=== PATIENT | female | born 1965 | race African-American/Black ===

== ENCOUNTER 2017-04-27 03:51 | Emergency (ER) | payer OTHER ==
[2017-04-27 03:59] VITALS: PULSE 104
[2017-04-27] MEDS ORDERED: ACETAMINOPHEN TAB 500 MG TAB PO STA (04:16)
--- NOTE | 2017-04-27 04:19 | ED ---
URI HPI - General Chief Complaint: Upper Respiratory Infection Stated Complaint: cough Time Seen by Provider: 04/27/17 04:00 Source: patient, RN notes reviewed Mode of arrival: ambulatory Limitations: no limitations - History of Present Illness Initial Comments: This is a 52-year-old female who states she had the onset yesterday of a cough sore throat headache some chest tightness. She states the cough is somewhat productive. She denies any nausea vomiting she does have a generalized headache also. No neck pain no back pain. MD Complaint: fever, cough, nasal congestion - Related Data Previous Rx's Medication Instructions Recorded Ibuprofen 800 mg PO Q6HR PRN #20 tablet 04/27/17 Oseltamivir [Tamiflu] 75 mg PO Q12HR #14 cap 04/27/17 Allergies Allergy/AdvReac Type Severity Reaction Status Date / Time No Known Allergies Allergy Verified 04/27/17 03:59 Review of Systems ROS Statement: Those systems with pertinent positive or pertinent negative responses have been documented in the HPI. ROS Other: All systems not noted in ROS Statement are negative. Past Medical History Past Medical History: No Reported History History of Any Multi-Drug Resistant Organisms: None Reported Past Surgical History: No Surgical Hx Reported Past Psychological History: No Psychological Hx Reported Smoking Status: Current some day smoker Past Alcohol Use History: Occasional Past Drug Use History: None Reported General Exam - General Exam Comments Initial Comments: This is a well-developed well-nourished awake alert oriented 3 female Limitations: no limitations General appearance: alert, in no apparent distress Head exam: Present: atraumatic, normocephalic, normal inspection Eye exam: Present: normal appearance, PERRL, EOMI. Absent: scleral icterus, conjunctival injection, periorbital swelling ENT exam: Present: other (Boggy nasal mucosa. Very minimal posterior pharyngeal hyperemia no exudate seen. TMs are dull bilaterally.) Neck exam: Present: normal inspection, full ROM. Absent: tenderness, meningismus Respiratory exam: Present: normal lung sounds bilaterally. Absent: respiratory distress, wheezes, rales, rhonchi, stridor Cardiovascular Exam: Present: normal rhythm, tachycardia, normal heart sounds. Absent: systolic murmur, diastolic murmur, rubs, gallop, clicks GI/Abdominal exam: Present: soft, normal bowel sounds. Absent: distended, tenderness, guarding, rebound, rigid Extremities exam: Present: normal inspection, full ROM, normal capillary refill. Absent: tenderness, pedal edema, joint swelling, calf tenderness Back exam: Present: normal inspection Neurological exam: Present: alert, oriented X3, CN II-XII intact Psychiatric exam: Present: normal affect, normal mood Skin exam: Present: warm, dry, intact, normal color. Absent: rash Course Vital Signs 04/27/17 03:54 Temperature 102.4 F H Pulse Rate 104 H Respiratory 18 Rate Blood Pressure 139/78 O2 Sat by Pulse 97 Oximetry Medical Decision Making - Medical Decision Making I did discuss findings with the patient family members patient does have influenza type A. She'll be discharged home on appropriate medication - Lab Data Lab Results 04/27/17 Range/Units 04:09 Influenza Type A RNA Detected H (Not Detectd) Influenza Type B (PCR) Not Detected (Not Detectd) - Radiology Data Radiology results: report reviewed (I did review the imaging and reports no acute findings.), image reviewed Disposition Clinical Impression: Influenza, Febrile illness, acute Disposition: HOME SELF-CARE Condition: Good Instructions: Influenza (ED), Fever in Adults (ED) Prescriptions: Ibuprofen 800 mg PO Q6HR PRN #20 tablet PRN Reason: Pain Oseltamivir [Tamiflu] 75 mg PO Q12HR #14 cap Referrals: Ricky Taylor MD [Primary Care Provider] - 1-2 days
[2017-04-27] MEDS ORDERED: OSELTAMIVIR 75 MG CAP PO STA (04:52)
--- NOTE | 2017-04-27 05:00 | XR ---
EXAM: XR Chest, 2 Views CLINICAL HISTORY: Reason: cough TECHNIQUE: Frontal and lateral views of the chest. COMPARISON: No relevant prior studies available. FINDINGS: Lungs: Unremarkable. No consolidation. Pleural space: Unremarkable. No pneumothorax. Heart: Unremarkable. No cardiomegaly. Mediastinum: Unremarkable. Bones/joints: Unremarkable. IMPRESSION: Normal chest x-rays.
[2017-04-27 05:14] VITALS: BP 136/77; RESP 19; TEMP 102.5
[2017-04-27] MEDS ORDERED: IBUPROFEN 800 MG TAB PO STA (05:14)
== END 2017-04-27 05:17 | disposition home or self-care (01) ==
LOC: EC 03:51
DX: J09.X2 Influenza due to identified novel influenza A virus with other respiratory manifestations (principal); F17.200 Nicotine dependence, unspecified, uncomplicated
CPT/HCPCS: 71046; 87502; 99283

== ENCOUNTER → 2018-12-19 | Outpatient (CLI) | payer OTHER ==
--- NOTE | 2018-12-23 09:26 | MM ---
Reason for exam: screening (asymptomatic). Last mammogram was performed 1 year and 9 months ago. History: Patient is postmenopausal. Physical Findings: A clinical breast exam by your physician is recommended on an annual basis and results should be correlated with mammographic findings. MG Screening Mammo w CAD Bilateral CC and MLO view(s) were taken. Prior study comparison: March 27, 2017, bilateral MG screening mammo w CAD. There are scattered fibroglandular densities. There is chronic nodularity in the right breast. No significant changes when compared with prior studies. ASSESSMENT: Negative, BI-RAD 1 RECOMMENDATION: Routine screening mammogram of both breasts in 1 year.
== END | disposition home or self-care (01) ==
LOC: RADMAMWWP 13:38
PROVIDERS: ATTEND Family Medicine
DX: Z12.31 Encounter for screening mammogram for malignant neoplasm of breast (principal)
CPT/HCPCS: 77067

== ENCOUNTER → 2021-03-17 | Outpatient (CLI) | payer OTHER ==
--- NOTE | 2021-03-17 11:28 | MR ---
EXAMINATION TYPE: MR knee RT wo con DATE OF EXAM: 03/17/2021 COMPARISON: X-ray 01/26/2021 HISTORY: Right knee pain TECHNIQUE: Multiplanar, multisequence imaging of the right knee is performed without IV contrast. FINDINGS: There is bone marrow edema or contusion involving the medial tibial plateau likely related to reactiv e marrow edema. Significant edema surrounding the medial collateral ligament which appears intact fin dings suggestive of sprain. There is a pseudoextrusion of the medial meniscus with the posterior hor n medial meniscal tear. There is grade III chondromalacia focally within the medial femoral articular cartilage. Motion artifact limits assessment of the ACL which is believed to be intact. PCL and lateral collater al ligament also to be intact. Lateral meniscus has a normal appearance. The patellofemoral joint demonstrates a moderate amount of fluid. Patellar and quadriceps tendons are intact but are limited by motion. There is a small amount of increased signal near the insertion of the quadriceps tendon upon the patella which could represent a mild tendinosis correlate clinically g iven limitations of the exam.. There is fibrillation and chondromalacia of the patellar cartilage. Po pliteal fossa demonstrates no evidence of cyst. IMPRESSION: 1. Marrow edema or contusion involving the medial tibial plateau with the grade 3 posterior horn and body medial meniscal tear. Edema is seen surrounding the MCL without evidence of disruption findings are suggestive of sprain. 2. Moderate amount of fluid in the suprapatellar bursa. Motion artifact limits the exam there is no e vidence of quadriceps tendon tear. There may be small amount of intrasubstance signal near the insert ion of the quadriceps suggestive of tendinitis.
== END | disposition home or self-care (01) ==
LOC: RADMRIMAIN 08:40
PROVIDERS: ATTEND Orthopaedic Surgery
DX: S83.241A Other tear of medial meniscus, current injury, right knee, initial encounter (principal); X58.XXXA Exposure to other specified factors, initial encounter

== ENCOUNTER 2022-02-12 10:18 | Emergency (ER) | payer OTHER ==
[2022-02-12 10:39] VITALS: TEMP 98.3
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
[2022-02-12] MEDS ORDERED: ACET/COD 300 MG/30 MG STARTER PACK 6 TAB BTL PO STA (11:23)
[2022-02-12] MEDS ORDERED: oxyCODONE-APAP 10-325MG 1 EACH TAB PO STA (11:23)
[2022-02-12 11:32] VITALS: BP 143/106; PULSE 76; RESP 18
--- NOTE | 2022-02-12 13:30 | XR ---
EXAMINATION TYPE: XR finger LT DATE OF EXAM: 02/12/2022 COMPARISON: None HISTORY: Fourth digit dislocation TECHNIQUE: Three-view left ring finger FINDINGS: There is an anterior dislocation of the middle phalanx of the proximal phalanx fourth digit . Soft tissues appear normal. No acute fractures identified. IMPRESSION: 1. Dislocation middle phalanx on proximal phalanx left ring finger.
== END 2022-02-12 11:34 | disposition home or self-care (01) ==
LOC: EC 10:18
DX: S63.259A Unspecified dislocation of unspecified finger, initial encounter (principal); F17.200 Nicotine dependence, unspecified, uncomplicated; W23.1XXA Caught, crushed, jammed, or pinched between stationary objects, initial encounter
CPT/HCPCS: 29125; 99283

== ENCOUNTER → 2022-03-13 | Outpatient (CLI) | payer OTHER ==
[2022-03-13 18:02] LABS: Basophils # (A) 0.04 X 10*3/uL (0.00-0.10); Basophils % (A) 0.7 %; Eosinophils # (A) 0.14 X 10*3/uL (0.04-0.35); Eosinophils % (A) 2.5 %; HCT 39.5 % (37.2-46.3); Immature Grans, Automated 0 %; Lymphocytes # (A) 2.42 X 10*3/uL (0.90-5.00); Lymphocytes % (A) 43.8 %; MCHC 30.4 g/dL (32.0-37.0); MCV 85.7 fL (80.0-97.0); Mean Platelet Volume 10.8 fL (9.5-12.2); Monocytes # (A) 0.44 X 10*3/uL (0.20-1.00); NRBC Per 100 WBC 0 /100 WBCS (0.0-0.0); Neutrophils # (A) 2.49 X 10*3/uL (1.80-7.70); Platelet Count 305 X 10*3/uL (140-440); RBC 4.61 X 10*6/uL (4.10-5.20); WBC 5.53 X 10*3/uL (4.50-10.00)
[2022-03-13 18:47] LABS: African American GFR (CKD) 64.5 (60.0-200.0); Anion Gap 11.5 mmol/L (10.00-18.00); BUN/Creat Ratio 17.18 Ratio (12.00-20.00); Blood Urea Nitrogen 18.9 mg/dL (9.0-27.0); Calcium 9.7 mg/dL (8.7-10.3); Carbon Dioxide 26.5 mmol/L (20.0-27.5); Non-African American GFR(CKD) 55.7 (60.0-200.0); Potassium 4.5 mmol/L (3.5-5.5)
== END | disposition home or self-care (01) ==
LOC: LABPAT 11:41
PROVIDERS: ATTEND Orthopaedic Surgery Hand Surgery
DX: Z01.818 Encounter for other preprocedural examination (principal)
CPT/HCPCS: 80048; 85025; 93005

== ENCOUNTER 2022-03-14 12:24 | Day surgery (SDC) | payer OTHER ==
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
[~2022-03-14 12:24] MED LIST: DEXAMETHASONE SOD PHOSPHATE 4 MG/ML 1 ML VIAL IV ONE; HYDROmorphone 0.5 MG/0.5 ML SYRINGE IVP PRN; LACTATED RINGERS 1,000 ML IV SCH; ONDANSETRON 4 MG/2 ML VIAL IVP ONE
[2022-03-14 13:23] VITALS: RESP 16
[2022-03-14] MEDS ORDERED: fentaNYL (PF) 50 MCG/ML 2 ML AMP ONE (14:50)
[2022-03-14] MEDS ORDERED: HYDROmorphone (PF) 1 MG/ML ONE (14:50)
[2022-03-14] MEDS ORDERED: PROPOFOL 10 MG/ML 20 ML VIAL IV ONE (14:50)
[2022-03-14] MEDS ORDERED: LIDOCAINE 2% INJ 20 MG/ML (2 ML VIAL) ONE (14:50)
[2022-03-14] MEDS ORDERED: BUPIVACAINE (PF) 0.5% 30 ML VIAL SQ ONE ×2 (14:54)
[2022-03-14] MEDS ORDERED: LIDOCAINE 1% INJ 10MG/ML (10 ML MDV) SQ ONE ×2 (14:54)
[2022-03-14 16:07] VITALS: TEMP 96.8
[2022-03-14 17:02] VITALS: BP 128/79; PULSE 77
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
== END 2022-03-14 17:15 | disposition home or self-care (01) ==
LOC: OR 12:24
PROVIDERS: ATTEND Orthopaedic Surgery Hand Surgery
DX: S63.285A Dislocation of proximal interphalangeal joint of left ring finger, initial encounter (principal); I10 Essential (primary) hypertension; M19.90 Unspecified osteoarthritis, unspecified site; Z98.891 History of uterine scar from previous surgery; F17.200 Nicotine dependence, unspecified, uncomplicated; Z80.9 Family history of malignant neoplasm, unspecified
CPT/HCPCS: 26785; 26445; 26525; J1100; J0690; J2405; J2001

== ENCOUNTER → 2023-05-09 | Outpatient (CLI) | payer OTHER ==
--- NOTE | 2023-05-10 08:58 | MM ---
Reason for Exam: Screening (asymptomatic). Last mammogram was performed 4 year(s) and 4 month(s) ago. Patient History: Menarche at age 12. First Full-Term at age 20. Postmenopausal. Risk Values: Bharti 5 year model risk: 1.4%. NCI Lifetime model risk: 7.3%. Prior Study Comparison: 03/27/2017 Bilateral Screening Mammogram, [facility]. 12/19/2018 Bilateral Screening Mammogram, [facility]. Tissue Density: There are scattered fibroglandular densities. Findings: Analyzed By CAD. There is no suspicious group of microcalcifications or new suspicious mass. Overall Assessment: Negative, BI-RAD 1 Management: Screening Mammogram of both breasts in [address] [facility] will attempt to contact patient to return for supplemental views and ultrasound if indicated. Patient should continue monthly self-breast exams. A clinical breast exam by your physician is recommended on an annual basis. This exam should not preclude additional follow-up of suspicious palpable abnormalities. Note on Bharti scores and lifetime risk: 1. A Bharti score greater than 3% is considered moderate risk. If this is the case, consider specialist referral to assess eligibility for a risk reducing agent. 2. If overall lifetime risk for the development of breast cancer is 20% or higher, the patient may qualify for future screening with alternating mammogram and breast MRI. Electronically signed and approved by: Navjot Candelario DO
== END | disposition home or self-care (01) ==
LOC: RADMAMWWP 12:24
PROVIDERS: ATTEND Family Medicine
DX: Z12.31 Encounter for screening mammogram for malignant neoplasm of breast (principal); Z78.0 Asymptomatic menopausal state
CPT/HCPCS: 77067

== ENCOUNTER 2023-11-16 14:07 | Emergency (ER) | payer OTHER ==
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
[2023-11-16] MEDS: LIDOCAINE 4% PATCH TOPICAL ONE (16:23)
[2023-11-16] MEDS: KETOROLAC 15 MG/ML 1 ML VIAL IVP STA (16:39)
[2023-11-16] MEDS: DEXAMETHASONE SOD PHOSPHATE 10 MG/ML 1 ML VIAL IVP STA (16:40)
[2023-11-16] MEDS: HYDROmorphone 1 MG/ML 1 ML SYRINGE IVP STA (16:40)
[2023-11-16] MEDS: ORPHENADRINE 30 MG/ML 2 ML VIAL IVP STA (16:40)
[2023-11-16 17:44] VITALS: BP 120/77; PULSE 83; RESP 16; TEMP 98.2
== END 2023-11-16 17:50 | disposition home or self-care (01) ==
LOC: EC 14:07
DX: M54.16 Radiculopathy, lumbar region (principal); M19.90 Unspecified osteoarthritis, unspecified site; F17.200 Nicotine dependence, unspecified, uncomplicated; Z88.6 Allergy status to analgesic agent
CPT/HCPCS: 99406; 99283; 96374; 96375 ×3; J1100; J2360; J1170; J1885